=== PATIENT | female | born 1955 | race Caucasian/White ===

== ENCOUNTER → 2023-12-10 06:46 | Outpatient (REF) | payer MEDICARE, SELFPAY | LOC: HWRAD 06:46 | PROVIDERS: ATTENDING PHYSICIAN Nurse Practitioner Family; FAMILY PHYSICIAN Physician Assistant Medical | DX: R22.1 Localized swelling, mass and lump, neck (principal) | CPT/HCPCS: 76536 ==

== ENCOUNTER 2024-01-21 16:29 | Emergency (ER) | payer MEDICARE, SELFPAY ==
[2024-01-21 16:36] VITALS: BP 147/74
--- NOTE | 2024-01-21 18:43 | ED.GENMED ---
History of Present Illness
General
Chief Complaint: Fall
Source: patient and family
Exam Limitations: none
Time Seen by Provider: 01/21/24 18:02
Nursing documentation reviewed up to this point in time: agreed with
Travel History
Have you had any contact with someone who has COVID-19?: No
Do you have any symptoms of coronavirus? Fever > 100 degrees, chills, cough, shortness of breath, sore throat, loss of taste or smell, muscle aches, or headache?: No
History of Present Illness
History of Present Illness:
The patient is a pleasant 68-year-old female who reports she has chronic right hip pain and is due to have a right hip replacement, hopefully in the next few months. She reports that she lost her balance after trying to get up off her couch and
fell onto her right hip. Patient reports she is able to walk but the pain is now even worse. She did not hit her head. The injury occurred 5 days ago. Patient denies neck pain and worsening back pain.
Past History
Past History
ED Past Medical History: HTN, Hypercholesterolemia, Hypothyroidism and Other (Sleep apnea)
ED Past Surgical History: Gynecological and Orthopedic
Social History
Tobacco: Non-smoker
Alcohol: Other
Drug: None
Personal:
Living: other
Employment: Employed
Family History
Family History: Other
Review of Systems
Review of Systems
Allergies reviewed?: Yes
All Other Systems: ROS reviewed and negative except as documented in HPI and ROS
Constitutional: Reports no symptoms
EENT: Reports no symptoms
Respiratory: Reports no symptoms
Cardiac: Reports no symptoms
ABD/GI: Reports no symptoms
: Reports no symptoms
Musculoskeletal: Reports joint pain
Skin: Reports no symptoms
Neurological: Reports no symptoms
Endocrine: Reports no symptoms
Hematologic/Lymphatic: Reports no symptoms
Psychiatric: Reports no symptoms
Phy Exam
Physical Exam
Physical Exam:
Physical Exam
General: no apparent distress, not acutely ill
Neck: supple. no meningeal signs. normal posterior pharynx
Heart: s1/s2 regular rate and rhythm, no murmur. equal radial pulses.
Lungs: no acute respiratory distress. clear bilaterally
Abdomen: normal bowel sounds. not tender. no CVAT
Neuro: alert and oriented. no focal neurological deficits
Skin: No swelling, erythema or ecchymoses of back or hip area.
Psychiatric: well kept. interactive and cooperative
Extremities: Patient has lateral right hip tenderness on exam extending down to proximal right lateral thigh. There is no erythema, swelling or deformity. Strong pulses of bilateral feet.
Course
Orders/Labs/Results
Orders:
Orders
01/21/24 18:42
Hip, Right 2-3 Views [CR Hip - RT w/wo Pel 2-3 Vw*] Urgent
Comment:
Reason For Exam: fall onto R hip, R hip pain
Include a pelvis x-ray?: Yes
Vital Signs
Initial and Last Documented VS:
Initial Vital Signs
Temp Pulse Resp BP Pulse Ox
98.4 F 70 20 147/74 98
01/21/24 16:36 01/21/24 16:36 01/21/24 16:36 01/21/24 16:36 01/21/24 16:36
Last Documented Vital Signs
Temp Pulse Resp BP Pulse Ox
98.4 F 71 18 143/70 98
01/21/24 16:36 01/21/24 20:47 01/21/24 20:47 01/21/24 20:47 01/21/24 20:47
MDM/Problems Addressed
Differential Diagnosis Includes:
Right hip contusion, right hip fracture, pelvic fracture
MDM/Problems Addressed:
Patient presents with acute on chronic right hip pain
Chronic conditions affecting care:
Osteoarthritis of right hip
Acute Exacerbation and/or Progression of Chronic Illness:
Patient is acutely hypertensive, however, she is experiencing pain.
Acute Exacerbation and/or Progression of Chronic Illness: HTN
*Radiology
Radiology exam reviewed: preliminary read by ED provider (Right hip x-ray reviewed by me. No fracture seen) and radiology read reviewed
*Pulse Oximetry
Patient hypoxic: no
*EKG
Interpreted by ED Provider?: NA
*Oil Refinery Operator Interpretation
Rate: Oil Refinery Operator- N/A
*Critical Care Note
Total Time (30-74mins, 75-104mins- exclusive of procedures): Not Applicable
Data Reviewed
Review of Other/Old Records Reveals: Radiology Studies (Prior right hip x-ray reviewed from 05/2023 which shows joint narrowing and right hip without fracture)
Source: patient and family (Daughter)
Patient Management
Social determinants of health affecting care: Living situation and Strong social support
Escalation/DeEscalation of care consider admission/obs:
Patient able to ambulate with a limp. There is no sign of septic joint. Patient offered tramadol but reports she will remain taking Motrin and Tylenol.
ED Attending Note
-
Portions of this chart may have been created with voice recognition software.� Occasional wrong word or��sound alike� substitutions may have occurred due to the inherent limitations of voice recognition software.
Discharge Plan
Departure
Patient Disposition: Home (Routine Discharge)
Date of Disposition: 01/21/24
Time of Disposition: 20:33
Patient with high blood pressure during this ER visit?: Yes
Condition: Good
Covid-19: Not Applicable
Discharge Problem:
Contusion of right hip
Instructions: Contusion (DC), BLOOD PRESSURE
Prescriptions:
No Action
multivitamin [Multi-Day] 1 EACH tablet
2 ea PO DAILY
acetaminophen [Tylenol Extra Strength] 500 MG tablet
650 mg PO Q4HPRN PRN (Reason: pain)
levothyroxine 100 MCG tablet
100 mcg PO DAILY
amitriptyline 10 MG tablet
10 mg PO PRN (Reason: sleep)
hydrochlorothiazide 25 MG tablet
25 mg PO DAILY
albuterol sulfate 1 PUFF HFA aerosol inhaler
1 puff inhalation R Q4HPRN PRN (Reason: asthma)
fexofenadine-pseudoephedrine [Wendy-D 24 Hour] 1 EACH tablet extended release 24 hr
1 ea PO DAILY
coenzyme P46-[id number] E 1 CAP capsule
2 cap PO DAILY
Ububwiwy-Aoztkf-YKE with vit D 1 EACH tablet
3 ea PO DAILY
Mucinex
1 tab PO PRN (Reason: allergies)
Patient Comments:
1-4 tabs
sertraline 100 MG tablet
150 mg PO DAILY
aspirin 81 MG tablet,delayed release (DR/EC)
81 mg PO DAILY
vitamin E (dl, acetate) 1,000 UNIT capsule
1,000 unit PO
Referrals:
Irene Jacome PA-C [Family Provider] -
Interventions
Interventions:
*Risk Screen - Suicide Last Done: 01/21/24 16:36
*General Assessment Last Done: 01/21/24 16:36
*Neglect/Abuse Screening Last Done: 01/21/24 16:36
ED- Fall Risk Assessment Last Done: 01/21/24 17:07
*Nursing Disposition Last Done: 01/21/24 20:48
ED-Musculoskeletal Assessment Last Done: 01/21/24 17:07
Discharge Date and Time
Discharge Date/Time: 01/21/24 20:53
Print Language: SPANISH
[2024-01-21 20:47] VITALS: BP 143/70
== END 2024-01-21 20:53 | disposition home or self-care (01) ==
LOC: EMR 16:29
PROVIDERS: EMERGENCY PHYSICIAN Emergency Medicine; FAMILY PHYSICIAN Physician Assistant Medical
DX: S70.01XA Contusion of right hip, initial encounter (principal); W19.XXXA Unspecified fall, initial encounter; I10 Essential (primary) hypertension; E78.00 Pure hypercholesterolemia, unspecified; E03.9 Hypothyroidism, unspecified; G47.30 Sleep apnea, unspecified
CPT/HCPCS: 99283; 73502

== ENCOUNTER → 2024-07-24 08:15 | Outpatient (REF) | payer MEDICARE, SELFPAY | LOC: WDC 08:15 | PROVIDERS: ATTENDING PHYSICIAN Obstetrics & Gynecology; FAMILY PHYSICIAN Physician Assistant Medical | DX: Z12.31 Encounter for screening mammogram for malignant neoplasm of breast (principal) | CPT/HCPCS: 77063; 77067 ==